=== PATIENT | male | born 1985 | race Hispanic/Latino ===

== ENCOUNTER 2023-08-07 02:12 | Emergency (ER) | payer BC ==
[2023-08-07] MEDS ORDERED: HYDROcodone/Acetaminophen 5/325 mg Tablet ONE (03:35)
== END 2023-08-07 03:56 | disposition home or self-care (01) ==
LOC: ERS 02:12
DX: S02.5XXA Fracture of tooth (traumatic), initial encounter for closed fracture (principal); K02.9 Dental caries, unspecified; I10 Essential (primary) hypertension; F17.210 Nicotine dependence, cigarettes, uncomplicated; F17.290 Nicotine dependence, other tobacco product, uncomplicated; X58.XXXA Exposure to other specified factors, initial encounter
CPT/HCPCS: 99282